=== PATIENT | male | born 1950 | race Two or more races ===

== ENCOUNTER 2022-01-18 08:43 | Outpatient (CLI) | payer OTHER | END 2022-01-18 14:09 | disposition home or self-care (01) | LOC: SONOGRAMA 08:43 | PROVIDERS: ATTEND Surgery | DX: K40.90 Unilateral inguinal hernia, without obstruction or gangrene, not specified as recurrent (principal) ==

== ENCOUNTER 2022-02-23 05:15 | Day surgery (SDC) | payer OTHER ==
[~2022-02-23 05:15] MED LIST: TAMS0.4C PO; ZESTRIL20 MG PO
== END 2022-02-23 18:50 | disposition home or self-care (01) ==
LOC: CIR.AMB 05:15 → ADM 08:00 → CIR.AMB 08:00
PROVIDERS: ATTEND Surgery
DX: K40.30 Unilateral inguinal hernia, with obstruction, without gangrene, not specified as recurrent (principal); Z20.822 Contact with and (suspected) exposure to COVID-19; I10 Essential (primary) hypertension